=== PATIENT | female | born 1955 | race Caucasian/White ===

== ENCOUNTER 2018-07-29 14:19 | Outpatient (CLI) | payer OTHER ==
[2013-04-13 20:18] VITALS: BP 138/67
== END 2018-07-29 14:25 ==
LOC: LAB 14:19
PROVIDERS: ATTEND Internal Medicine Endocrinology, Diabetes & Metabolism
DX: E05.90 Thyrotoxicosis, unspecified without thyrotoxic crisis or storm (principal)
CPT/HCPCS: 36415; 84439; 84443